=== PATIENT | female | born 1990 | race Caucasian/White ===

== ENCOUNTER → 2017-07-13 | Outpatient (REF) | payer OTHER | LOC: M LAB REF 17:12 | PROVIDERS: ATTEND Advanced Practice Midwife | DX: Z34.83 Encounter for supervision of other normal pregnancy, third trimester (principal) ==

== ENCOUNTER 2017-08-09 02:17 | Inpatient (IN) | payer OTHER ==
[2017-08-09] MEDS: PENICILLIN G POTASSIUM IV 5 MU in D5W MINI-BAG PLUS 100 ML IV (03:30)
[2017-08-09 03:35] LABS: MEAN CORPUSCULAR HEMOGLOBIN 28.3 pg (27.0-33.0); MEAN CORPUSCULAR HGB CONC 33.9 g/dl (32.0-36.5); MEAN CORPUSCULAR VOLUME 83.4 fl (80.0-96.0); PLATELET COUNT, AUTOMATED 196 10^3/uL (150-450); RED CELL DISTRIBUTION WIDTH 12.8 % (11.5-14.5); WHITE BLOOD COUNT 11.8 10^3/uL (4.0-10.0)
[2017-08-09] MEDS: ACETAMINOPHEN 500 MG TAB PO (05:13)
[2017-08-09] MEDS: PENICILLIN G POTASSIUM IV 2.5 MU in APPROPRIATE DILUENT 1 EA IV ×4 (07:42→19:25)
[2017-08-09] MEDS ORDERED: OXYTOCIN 30 UNITS IN 0.9% NaCl 500ML IV BAG (J2590) As Ordered (11:16)
[2017-08-09] MEDS: OXYTOCIN DRIP 30 UNITS in APPROPRIATE DILUENT 1 EA IV (11:24)
[2017-08-09] MEDS ORDERED: FENTANYL 2MCG/ML ROPIVACAINE 0.2% IN 0.9% NACL 200ML IVBAG As Ordered (16:38)
[2017-08-09] MEDS ORDERED: LACTATED RINGER'S 1000 ML IV (17:30)
[2017-08-09] MEDS ORDERED: diphenhydrAMINE INJ 50MG/ML VIAL (J1200) IV (17:30)
[2017-08-09] MEDS ORDERED: EPIDURAL/PCA KEYS XX (17:30)
[2017-08-09] MEDS ORDERED: NALOXONE INJ 0.4 MG/1 ML VIAL (J2310) IV (17:30)
[2017-08-09] MEDS ORDERED: EPIDURAL COMMENT XX (17:30)
[2017-08-09] MEDS ORDERED: FENTANYL/ROPIVACAINE/NACL BAG 200 ML EPIDURAL (17:30)
[2017-08-09] MEDS ORDERED: ePHEDrine SULFATE 25 MG/5 ML(5MG/ML) SYRINGE IV (17:30)
[2017-08-09] MEDS ORDERED: REFRIGERATOR IV KEYS XX (17:30)
[2017-08-09] MEDS ORDERED: ONDANSETRON 4MG/2ML VIAL (J2405) IV ×2 (17:30→22:15)
[2017-08-09] MEDS ORDERED: DIBUCAINE 1% OINTMENT 30GM TOP (22:15)
[2017-08-09] MEDS ORDERED: MEASLES,MUMPS,RUBELLA VACCINE INJ (MMR-II) (90707) SC (22:15)
[2017-08-09] MEDS ORDERED: RHOGAM 300 MCG (1500 IU) INJ (J2790) IM (22:15)
[2017-08-09] MEDS ORDERED: METHYLERGONOVINE MALEATE 0.2 MG TAB PO (22:15)
[2017-08-09] MEDS: IBUPROFEN 800 MG TAB PO (22:53)
[2017-08-10] MEDS: OXYTOCIN DRIP 30 UNITS in APPROPRIATE DILUENT 1 EA IV (01:34)
[2017-08-10] MEDS: LIDOCAINE 1% MDV INJ 50 ML VIAL INFIL (01:34)
[2017-08-10] MEDS: ACETAMINOPHEN 500 MG TAB PO ×3 (05:40→23:46)
[2017-08-10] MEDS: IBUPROFEN 800 MG TAB PO ×2 (08:29→18:36)
[2017-08-10] MEDS: PRENATAL VITAMINS CHEWABLE TABLET PO (08:29)
[2017-08-10] MEDS: DOCUSATE SODIUM 100 MG CAP PO (20:47)
[2017-08-11] MEDS: IBUPROFEN 800 MG TAB PO ×2 (02:47→10:13)
[2017-08-11] MEDS: ACETAMINOPHEN 500 MG TAB PO (06:01)
[2017-08-11] MEDS: PRENATAL VITAMINS CHEWABLE TABLET PO (10:14)
[2017-08-11] MEDS: DOCUSATE SODIUM 100 MG CAP PO (10:14)
== END 2017-08-11 12:00 | disposition home or self-care (01) | DRG 775 ==
LOC: M LDO 02:17 → M LDI 03:03 → M OBS 23:44
PROVIDERS: Advanced Practice Midwife
PROC: 10E0XZZ Delivery of Products of Conception, External Approach (ICD-10-PCS; principal; 2017-08-09)
PROC: 0KQM0ZZ Repair Perineum Muscle, Open Approach (ICD-10-PCS; 2017-08-09)
DX: O99.824 Streptococcus B carrier state complicating childbirth (principal); Z37.0 Single live birth; Z3A.39 39 weeks gestation of pregnancy; O70.1 Second degree perineal laceration during delivery

== ENCOUNTER → 2018-06-06 | Outpatient (CLI) | payer OTHER ==
[2018-06-06 13:47] LABS: BASO % 0.4 % (0.0-1.0); EOS # 0.1 10^3/uL (0.0-0.50); EOS % 0.6 % (0.0-3.0); HEMATOCRIT 37.6 % (36.0-47.0); IMMATURE GRANULOCYTE % 0.1 % (0-3.0); LYMPH # 1.8 10^3/uL (1.5-6.5); LYMPH % 21.8 % (24.0-44.0); MEAN CORPUSCULAR HGB CONC 34.6 g/dl (32.0-36.5); MEAN CORPUSCULAR VOLUME 83.7 fl (80.0-96.0); MONO # 0.6 10^3/uL (0.0-0.8); MONO % 6.6 % (0.0-5.0); NEUTROPHILS # 5.9 10^3/uL (1.8-7.7); NEUTROPHILS % 70.5 % (36.0-66.0); PLATELET COUNT, AUTOMATED 294 10^3/uL (150-450); RED BLOOD COUNT 4.49 10^6/uL (4.00-5.40); RED CELL DISTRIBUTION WIDTH 12.8 % (11.5-14.5); WHITE BLOOD COUNT 8.3 10^3/uL (4.0-10.0)
[2018-06-06 15:38] LABS: CHLAMYDIA DNA AMPLIFICATION NEGATIVE (NEGATIVE); GC DNA AMPLIFICATION NEGATIVE (NEGATIVE)
[2018-06-07 11:28] LABS: HEPATITIS C VIRUS ABY INDEX < 0.0 INDEX (<0.8)
[2018-06-07 11:28] LABS: HBsAg Prenatal NEGATIVE (NEGATIVE); HIV 1&2 SCREEN CENTAUR NEGATIVE (NEGATIVE); RUBELLA IgG QUALITATIVE IMMUNE (IMMUNE)
== END ==
LOC: M SMT 10:26
DX: Z34.81 Encounter for supervision of other normal pregnancy, first trimester (principal)
CPT/HCPCS: 86762

== ENCOUNTER → 2018-08-20 | Outpatient (REF) | payer OTHER ==
[~2018-08-20] MED LIST: IBUP-1114 PO; PRENTAB9 PO; TYLE500T78 PO
== END ==
LOC: M LAB REF 12:50
PROVIDERS: ATTEND Obstetrics & Gynecology
DX: Z34.82 Encounter for supervision of other normal pregnancy, second trimester (principal)

== ENCOUNTER → 2018-08-30 | Outpatient (CLI) | payer OTHER ==
--- NOTE | 2018-08-30 15:23 | REP ---
Obstetric sonography: History: Supervision of at 21 weeks for anatomy. Findings: Scanning through the gravid uterus demonstrates a viable single intrauterine gestation in a cephalic lie. motion is observed and heart rate is recorded at 160 beats per minute. An anterior grade 1 placenta is seen without evidence of previa or abruption. Amniotic fluid is subjectively normal. Closed cervical length is 4.0 cm. No extrauterine abnormalities observed. No anomaly is seen. The following anatomic structures are identified and felt to be sonographically unremarkable: cranium, choroid plexus, cavum, cerebellum and posterior fossa, face and profile, lungs, four-chamber heart with left and right ventricular outflow tract views, diaphragm, left-sided stomach, abdominal wall cord insertion, three-vessel cord, kidneys and bladder, spine, upper and lower extremities. Biometry chart: BPD 5.3 cm = 22 weeks 1 day HC 19.7 cm = 21 weeks 6 days AC 17.6 cm = 22 weeks 3 days FL 3.9 cm = 22 weeks 3 days HL 3.7 cm = 22 weeks 5 days CD 2.5 cm = 22 weeks 5 days HC/AC ratio normal 1.12. Cephalic index normal 0.76. Estimated weight 501 grams, 1 pound 1 ounce, 83rd percentile for 21 weeks 2 days. Impression: Viable single intrauterine gestation at 22 weeks 0 days by today's composite sonographic criteria. The [facility] by today's sonography January 03, 2019. anatomic survey is felt to be complete. Electronically Signed by Eyal Carlson MD 08/30/2018 07:58 P
== END ==
LOC: M SMT 11:16
PROVIDERS: ATTEND Obstetrics & Gynecology
DX: Z36.9 Encounter for antenatal screening, unspecified (principal); Z3A.22 22 weeks gestation of pregnancy

== ENCOUNTER → 2018-12-16 | Outpatient (REF) | payer OTHER | LOC: M LAB REF 13:15 | PROVIDERS: ATTEND Nurse Practitioner Women's Health | DX: Z23 Encounter for immunization (principal); Z3A.34 34 weeks gestation of pregnancy ==